=== PATIENT | female | born 1980 | race Caucasian/White ===

== ENCOUNTER 2020-06-09 15:08 | Emergency (ER) | payer OTHER, SELFPAY ==
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
--- NOTE | ~2020-06-09 | XR_ITS ---
EXAMINATION: XR chest 2V DATE: 06/09/2020 16:19 INDICATION: Right shoulder pain TECHNIQUE: PA and lateral views of the chest are obtained. COMPARISON: 08/08/2019 FINDINGS: The lungs are free of acute opacities. There is no pleural effusion or pneumothorax. The ca rdiomediastinal silhouette is normal. There is mild thoracic spondylosis. IMPRESSION: 1. No acute cardiopulmonary abnormality. Reviewed, dictated and finalized at location A.
[2020-06-09 15:12] VITALS: BP 124/94; PULSE 121; RESP 18; TEMP 36.7; O2SAT 100
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
--- NOTE | 2020-06-09 16:10 | PC.NURSE ---
Pt to CT scan and Xray via stretcher.
[2020-06-09 17:08] VITALS: BP 141/93; PULSE 89; RESP 17; O2SAT 100
== END 2020-06-09 17:09 | disposition home or self-care (01) ==
PROVIDERS: Emergency Provider Emergency Medicine; PCP Family Medicine
DX: S16.1XXA Strain of muscle, fascia and tendon at neck level, initial encounter (principal); V59.50XA Passenger in pick-up truck or van injured in collision with unspecified motor vehicles in traffic accident, initial encounter; S20.219A Contusion of unspecified front wall of thorax, initial encounter; S40.011A Contusion of right shoulder, initial encounter; F17.200 Nicotine dependence, unspecified, uncomplicated
CPT/HCPCS: 71046; 72125; 73030; 99284

== ENCOUNTER → 2020-12-25 01:51 | Outpatient (CLI) | payer OTHER, SELFPAY ==
[2020-12-26 08:28] LABS: SARS-CoV-2 RNA PCR Negative
== END ==
PROVIDERS: PCP Family Medicine; Visit Provider Internal Medicine Gastroenterology
DX: Z01.812 Encounter for preprocedural laboratory examination (principal); Z20.822 Contact with and (suspected) exposure to COVID-19
CPT/HCPCS: C9803; U0003; U0005

== ENCOUNTER 2020-12-28 00:51 | Day surgery (SDC) | payer OTHER, SELFPAY ==
[2020-12-11 12:40] VITALS: BMI 24.6
[2020-12-28 07:47] VITALS: BP 128/94; PULSE 100; RESP 16; TEMP 36.7; O2SAT 99
[2020-12-28] MEDS: LACTATED RINGERS 1,000 ML 150 ML IV CONT (07:55)
--- NOTE | 2020-12-28 08:53 | WPDANESEPPF ---
Anes - Initial Pre Proc Eval Procedure: Operation Date: 12/28/20 09:00 Proposed Procedures p Screening Colonoscopy - Juni Mccain MD Date/Time: 12/28/20 08:53 Surgeon: Juni Mccain MD Pre Op Diagnosis: Neoplasm Screening, Family Hx Of Colon CA Patient Data Age: 40 Gender: F Height: 5 ft 8 in Weight: 76.6 kg Last Vital Signs Temp 98.1 F 12/28/20 07:47 Pulse 100 12/28/20 07:47 Resp 16 12/28/20 07:47 BP 128/94 H 12/28/20 07:47 Pulse Ox 99 12/28/20 07:47 Allergies Allergy/AdvReac Type Severity Reaction Status Date / Time oxycodone Allergy Intermediate Hives Verified 12/11/20 12:41 Home Medications Medication Instructions Recorded Confirmed Type cetirizine 10 mg tablet 10 mg PO DAILY 09/29/20 12/11/20 History cholecalciferol (vitamin D3) 125 125 mcg PO DAILY 09/29/20 12/11/20 History mcg (5,000 unit) capsule fluticasone propionate 50 1 spray INTRANASAL DAILY 09/29/20 12/11/20 History mcg/actuation nasal spray,suspension zsopmvhzuaxa-Gj-newo-minerals 1 tablet PO DAILY 09/29/20 12/11/20 History medroxyprogesterone See Rx Instructions .ROUTE .COMPLEX 12/11/20 12/11/20 History sodium oxybate [Xyrem] 4 g PO HS 12/11/20 12/11/20 History solriamfetol [Sunosi] 150 mg PO DAILY 12/11/20 12/11/20 History Patient hx anesthesia problems: none Family hx anesthesia problems: none PMFSH Past Medical History Medical History (Updated 09/29/20 @ 11:53 by Jamila Ritchie NP) Allergic rhinitis (~1983) Family history of colon cancer Fibrocystic breast (~2007) Idiopathic hypersomnia with long sleep time (~1992) [facility]: Dr. Schwartz: sleep study AMARIS (obstructive sleep apnea) (~2011) CPAP Surgical History Surgical History H/O lumpectomy left breast 2008 Hx of tonsillectomy 2000 Family History Family History (Updated 09/29/20 @ 10:22 by Rodo Trujillo [facility]) Mother Family history of malignant neoplasm of breast in first degree relative Breast cancer DCIS Obesity (BMI 35.0-39.9 without comorbidity) Heart disease History of bilateral knee replacement Pulmonary embolism Father Carcinoma of colon, Onset Age: 70 Cerebrovascular accident 2011, 2012 Heart disease Grandparent , in her 80's Colon polyp Alzheimer's dementia Cerebrovascular accident COPD (chronic obstructive pulmonary disease) with emphysema Unknown Colon polyp, Onset Age: 30 Other Family history of arthritis Social History Social History Smoking packs per day: 1 Smoking cigarettes per day: 20.0 Years smoked: 25 Smoking pack-years: 25.00 Smoking status: Current every day smoker Tobacco type: cigarettes Alcohol intake: current Substance use: never Substance use type: does not use Additional living arrangements comments: son Additional occupation/education comments: nurse practitioner Gender identity (if verbalized by the patient): Female Spiritual care concerns: No Anes - Eval Final PreProcedure Day of Procedure 12/28/20 08:53 Patient weight: normal Heart: regular rate and rhythm Lungs: clear to auscultation Airway: Mallampati scale class II Neurological: alert and oriented Last oral intake: >/= 8 hours ASA classification: II Emergent: no Anesthetic plan: proceed Anesthesia type and monitoring: general GIVS and standard monitoring Informed Consent: The patient's anesthetic plan and its attendant risks and benefits were discussed with the patient/family/POA. Questions were solicited and answers provided to the satisfaction of the patient/family/POA.
--- NOTE | 2020-12-28 08:58 | PM.HPGS ---
History of Present Illness History of Present Illness Consent: Risks, benefits, and alternatives have been discussed and questions answered. Patient agrees to proceed with procedure. Chief complaint: Neoplasm Screening, Family Hx Of Colon CA Narrative: Veronika Diamond is a 40 year old female here for first colonoscopy, father had colon cancer Review of Systems Constitutional: Constitutional: Denies headache(s) and Denies weakness Eyes: Eyes: Denies blurry vision ENT: Reports Normal hearing present, Denies headache(s) and Denies neck pain Cardiovascular: Cardiovascular: Denies chest pain and Denies dyspnea Respiratory: Respiratory: Denies dyspnea Gastrointestinal: Gastrointestinal: Reports no additional gastrointestinal complaints Genitourinary: Genitourinary: Denies dysuria Musculoskeletal: Musculoskeletal: Denies neck pain Integumentary/Breasts: Skin/Breast: Denies dry skin Neurologic: Reports Normal hearing present, Denies headache(s) and Denies weakness Psychiatric: Psychiatric: Denies anxiety Endocrine: Endocrine: Denies change in body appearance Hematologic/Lymphatic: Hematologic/Lymphatic: Denies easy bleeding Allergic/Immunologic: Allergic/Immunologic: Denies urticaria PMFSH Past Medical History Medical History (Updated 09/29/20 @ 11:53 by Jamila Ritchie NP) Allergic rhinitis (~1983) Family history of colon cancer Fibrocystic breast (~2007) Idiopathic hypersomnia with long sleep time (~1992) [facility]: Dr. Schwartz: sleep study AMARIS (obstructive sleep apnea) (~2011) CPAP Surgical History Surgical History H/O lumpectomy left breast 2008 Hx of tonsillectomy 2000 Family History Family History (Updated 09/29/20 @ 10:22 by Rodo Trujillo [facility]) Mother Family history of malignant neoplasm of breast in first degree relative Breast cancer DCIS Obesity (BMI 35.0-39.9 without comorbidity) Heart disease History of bilateral knee replacement Pulmonary embolism Father Carcinoma of colon, Onset Age: 70 Cerebrovascular accident 2011, 2012 Heart disease Grandparent , in her 80's Colon polyp Alzheimer's dementia Cerebrovascular accident COPD (chronic obstructive pulmonary disease) with emphysema Unknown Colon polyp, Onset Age: 30 Other Family history of arthritis Social History Social History Smoking packs per day: 1 Smoking cigarettes per day: 20.0 Years smoked: 25 Smoking pack-years: 25.00 Smoking status: Current every day smoker Tobacco type: cigarettes Alcohol intake: current Substance use: never Substance use type: does not use Additional living arrangements comments: son Additional occupation/education comments: nurse practitioner Gender identity (if verbalized by the patient): Female Spiritual care concerns: No Meds Home Medications and Allergies Home Medications Medication Instructions Recorded Confirmed Type cetirizine 10 mg tablet 10 mg PO DAILY 09/29/20 12/11/20 History cholecalciferol (vitamin D3) 125 125 mcg PO DAILY 09/29/20 12/11/20 History mcg (5,000 unit) capsule fluticasone propionate 50 1 spray INTRANASAL DAILY 09/29/20 12/11/20 History mcg/actuation nasal spray,suspension qjygykonshin-Rq-lylx-minerals 1 tablet PO DAILY 09/29/20 12/11/20 History medroxyprogesterone See Rx Instructions .ROUTE .COMPLEX 12/11/20 12/11/20 History sodium oxybate [Xyrem] 4 g PO HS 12/11/20 12/11/20 History solriamfetol [Sunosi] 150 mg PO DAILY 12/11/20 12/11/20 History Allergies Allergy/AdvReac Type Severity Reaction Status Date / Time oxycodone Allergy Intermediate Hives Verified 12/11/20 12:41 Vital Signs Vital Signs - 24 hr 12/28/20 07:47 Temperature 98.1 F Pulse Rate 100 Respiratory Rate 16 Blood Pressure 128/94 H Pulse Oximetry 99 Exam Const:
[2020-12-28 09:17] VITALS: BP 121/92; PULSE 100; RESP 19; O2SAT 100
[2020-12-28 09:27] VITALS: BP 129/97; PULSE 99; RESP 21; O2SAT 99
[2020-12-28 09:37] VITALS: BP 128/84; PULSE 82; RESP 21; O2SAT 100
== END 2020-12-28 09:50 | disposition home or self-care (01) ==
PROVIDERS: PCP Family Medicine; Visit Provider Internal Medicine Gastroenterology
PROC: 0DJD8ZZ Inspection of Lower Intestinal Tract, Via Natural or Artificial Opening Endoscopic (ICD-10-PCS; CPT 45378; principal; 2020-12-28 09:00)
DX: Z12.11 Encounter for screening for malignant neoplasm of colon (principal); K63.5 Polyp of colon; K64.8 Other hemorrhoids; Z80.0 Family history of malignant neoplasm of digestive organs; G47.33 Obstructive sleep apnea (adult) (pediatric); F17.210 Nicotine dependence, cigarettes, uncomplicated
CPT/HCPCS: 45385; 88305; C9803; J2704; J7120; U0003; U0005

== ENCOUNTER 2023-10-05 13:53 | Emergency (ER) | payer OTHER, SELFPAY ==
--- NOTE | 2023-10-05 14:08 | ED.URI ---
HPI - URI/Sore Throat General Chief Complaint: Upper Respiratory Infection Stated Complaint: Strep symptoms History of Present Illness HPI Narrative: 43 y/o female presented for c/o sore throat x3 days. Reports chronic post nasal drip and has been taking nasal spray and antihistamine. Denies increase in cough from baseline, sob, wheezing, n/v/d/f/c. Denies sick contacts. Smokes 1ppd. Related Data Home Medications Medication Instructions Recorded Confirmed cetirizine 10 mg tablet (Zyrtec) 10 mg PO DAILY 09/29/20 10/05/23 cholecalciferol (vitamin D3) 125 125 mcg PO DAILY 09/29/20 05/10/22 mcg (5,000 unit) capsule fluticasone propionate 50 1 spray intranasal DAILY 09/29/20 10/05/23 mcg/actuation nasal spray,suspension uxczsdmzaevz-Ka-qqjc-minerals 1 tablet PO DAILY 09/29/20 05/10/22 (Multiple Vitamin, Womens tablet) sodium, calcium, magnesium, 3.75 g PO QHS 11/04/21 10/05/23 potassium oxybates 0.5 gram/mL oral soln (Xywav) solriamfetol 150 mg tablet (Sunosi) 150 mg PO DAILY 11/04/21 10/05/23 Allergies Allergy/AdvReac Type Severity Reaction Status Date / Time oxycodone Allergy Intermediate Hives Verified 05/10/22 13:34 Review of Systems Review of Systems: CONSTITUTIONAL: Denies body aches, fever, chills, or sweats. EYES: Denies visual changes, redness, or discharge. ENT: reports sore throat, rhinorrhea CARDIOVASCULAR: Denies chest pain, palpitations, or edema. RESPIRATORY: Denies dyspnea. GASTROINTESTINAL: Denies abdominal pain, nausea, vomiting, or diarrhea. SKIN: Denies rash, itching, or wounds. MUSCULOSKELETAL: Denies back pain, joint pain, or myalgia. NEUROLOGIC: reports headache PMFSH Past Medical History Medical History Allergic rhinitis (~1983) Family history of colon cancer Fibrocystic breast (~2007) Idiopathic hypersomnia with long sleep time (~1992) [facility]: Dr. Schwartz: sleep study AMARIS (obstructive sleep apnea) (~2012) CPAP Sleep apnea Surgical History Surgical History H/O lumpectomy left breast 2008 Hx of tonsillectomy 2000 Family History Family History Mother Family history of malignant neoplasm of breast in first degree relative Breast cancer DCIS Obesity (BMI 35.0-39.9 without comorbidity) Heart disease History of bilateral knee replacement Pulmonary embolism Father Carcinoma of colon, Onset Age: 70 Cerebrovascular accident 2011, 2012 Heart disease Grandparent , in her 80's Colon polyp Alzheimer's dementia Cerebrovascular accident COPD (chronic obstructive pulmonary disease) with emphysema Unknown Colon polyp, Onset Age: 30 Other Family history of arthritis Social History Social History Smoking packs per day: 1 Smoking cigarettes per day: 20.0 Years smoked: 25 Smoking pack-years: 25.00 Smoking status: Current every day smoker Tobacco type: cigarettes Alcohol intake: current Alcohol use details: occasional Substance use: never Substance use type: does not use Living arrangements: alone Additional living arrangements comments: son Occupation/Education: occupation Additional occupation/education comments: nurse practitioner Gender identity (if verbalized by the patient): Female Spiritual care concerns: No Exam Narrative: GENERAL: mildly Ill-appearing, no acute distress. EYES: conjunctivae clear ENT: Mucous membranes moist. TMs pearly hankins with normal light reflex bilaterally; no tragal tenderness. Oropharynx erythematous without lesions. Tonsils absent. Slightly hoarse voice. No drooling, no trismus, uvula midline. No tripod positioning, hot potato voice, or soft palate swelling. NECK: Supple. No lymphadenopathy CHEST: Clear to ausculta
[2023-10-05 14:10] VITALS: BP 142/103; PULSE 117; RESP 16; TEMP 36.3; O2SAT 99
== END 2023-10-05 14:25 | disposition home or self-care (01) ==
PROVIDERS: Emergency Provider Nurse Practitioner Family
DX: J06.9 Acute upper respiratory infection, unspecified (principal); F17.210 Nicotine dependence, cigarettes, uncomplicated; Z79.899 Other long term (current) drug therapy
CPT/HCPCS: 87081; 87880; 99213; G0463

== ENCOUNTER 2024-03-02 09:27 | Outpatient (CLI) | payer OTHER, SELFPAY ==
--- NOTE | ~2024-03-02 | MM_ITS ---
EXAMINATION: MM screening [facility] HISTORY: Screening mammogram TECHNIQUE: Craniocaudal and mediolateral oblique 3-D tomosynthesis images were obtained and synthetic 2-D images were generated. CAD analysis was submitted and interpreted. COMPARISON: 05/31/2007 left breast ultrasound, reported negative BREAST PARENCHYMAL COMPOSITION: The breasts are heterogeneously dense, which may obscure small masses . FINDINGS: There is no evidence of suspicious mass, calcification, or architectural distortion to sugg est malignancy in either breast. IMPRESSION: 1. No mammographic evidence of malignancy. 2. Recommend routine screening mammography in one year. BI-RADS Category 1: Negative Reviewed, dictated and finalized at location A.
== END 2024-03-02 09:28 ==
PROVIDERS: PCP Family Medicine Sports Medicine; Visit Provider Family Medicine Sports Medicine
DX: Z12.31 Encounter for screening mammogram for malignant neoplasm of breast (principal)
CPT/HCPCS: 77063; 77067

== ENCOUNTER 2024-09-16 16:51 | Emergency (ER) | payer OTHER, SELFPAY ==
--- NOTE | ~2024-09-16 | XR_ITS ---
EXAMINATION: XR chest 2V Exam Date/Time: 09/16/2024 17:50 [facility]PERINTENDENT HISTORY: cough for 3 wk Comparison: 06/09/2020. RESULT: Lines, tubes, and devices: None. Lungs and pleura: Clear. Cardiomediastinal silhouette: Stable. Other: No acute osseous or upper abdominal finding. IMPRESSION: No acute cardiopulmonary process. Reviewed, dictated and finalized at location K. ITAL SUPERINTENDENT
[2024-09-16 17:41] VITALS: BP 157/107; PULSE 97; RESP 15; TEMP 36.2; O2SAT 100
--- NOTE | 2024-09-16 18:23 | ED.URI ---
HPI - URI/Sore Throat General Chief Complaint: Upper Respiratory Infection Stated Complaint: COUGH/CHEST PAIN Time Seen by Provider: 09/16/24 17:55 Source: patient Mode of arrival: ambulatory Limitations: no limitations History of Present Illness HPI Narrative: 44-year-old female presents with history of 3 weeks of coughing, sinus congestion, sinus pressure. Is taking daily antihistamine, nasal spray and has done Neti pot. No recent fevers. Worsening of cough with chest pain to left side when coughing. Feels congested in lungs. Patient reports she is wearing depends due to incontinence from coughing. Current every day smoker. All systems reviewed and negative except as noted above. Related Data Home Medications Medication Instructions Recorded Confirmed cetirizine 10 mg tablet (Zyrtec) 10 mg PO DAILY 09/29/20 10/05/23 cholecalciferol (vitamin D3) 125 125 mcg PO DAILY 09/29/20 10/05/23 mcg (5,000 unit) capsule fluticasone propionate 50 1 spray intranasal DAILY 09/29/20 10/05/23 mcg/actuation nasal spray,suspension xtcfvpcdzslh-Go-tdgt-minerals 1 tablet PO DAILY 09/29/20 10/05/23 (Multiple Vitamin, Womens tablet) sodium, calcium, magnesium, 3.75 g PO QHS 11/04/21 10/05/23 potassium oxybates 0.5 gram/mL oral soln (Xywav) solriamfetol 150 mg tablet (Sunosi) 150 mg PO DAILY 11/04/21 10/05/23 Allergies Allergy/AdvReac Type Severity Reaction Status Date / Time oxycodone Allergy Intermediate Hives Verified 05/10/22 13:34 Review of Systems Review of Systems: CONSTITUTIONAL: Denies fever, chills, or sweats. Reports fatigue. EYES: Denies visual changes, redness, or discharge. ENT: Reports rhinorrhea, congestion, sinus pressure, postnasal drainage. Denies sore throat, or otalgia. CARDIOVASCULAR: Denies chest pain, palpitations, or edema. RESPIRATORY: Reports cough. Denies dyspnea. GASTROINTESTINAL: Denies abdominal pain, nausea, vomiting, or diarrhea. GENITOURINARY: Denies dysuria or hematuria. SKIN: Denies rash or itching. MUSCULOSKELETAL: Denies back pain, joint pain, or myalgia. NEUROLOGIC: Denies headache, numbness, or weakness. PSYCHIATRIC: Denies anxiety or depression. All other systems reviewed are negative, except as documented in HPI. [facility], LAT[facility] Past Medical History Medical History Allergic rhinitis (~1983) Family history of colon cancer Fibrocystic breast (~2007) Idiopathic hypersomnia with long sleep time (~1992) [facility], [place]: Dr. Schwartz: sleep study AMARIS (obstructive sleep apnea) (~2011) CPAP Sleep apnea Surgical History Surgical History H/O lumpectomy left breast 2008 Hx of tonsillectomy 2000 Family History Family History Mother Family history of malignant neoplasm of breast in first degree relative Breast cancer DCIS Obesity (BMI 35.0-39.9 without comorbidity) Heart disease History of bilateral knee replacement Pulmonary embolism Father Carcinoma of colon, Onset Age: 70 Cerebrovascular accident 2011, 2012 Heart disease Grandparent , in her 80's Colon polyp Alzheimer's dementia Cerebrovascular accident COPD (chronic obstructive pulmonary disease) with emphysema Unknown Colon polyp, Onset Age: 30 Other Family history of arthritis Social History Social History Smoking packs per day: 1 Smoking cigarettes per day: 20.0 Years smoked: 25 Smoking pack-years: 25.00 Smoking status: Current every day smoker Tobacco type: cigarettes Alcohol intake: current Alcohol use details: occasional Substance use: never Substance use type: does not use Living arrangements: alone Additional living arrangements comments: son Occupation/Education: occupation Additional occupation/education comments: nurse practitioner Gender identity (if verbalized by the patient): Female Spiritual care concerns: No Comments At time of signature, agree with nursing past medical, surgical, social and family history. There is no relevant family history pertinent to the presenting complaint. Exam Narrative: GENERAL: This is a well-nourished, well-developed patient, in no apparent distress. HEAD: normocephalic, atraumatic. EYES: PERRL. Sclera clear/white. Vision is grossly intact. EARS: External ears normal, auditory canals clear and without drainage, TMs normal without perforation. Hearing grossly intact. NOSE: External nose normal with moderate congestion, purulent nasal drainage, erythema and swelling to bilateral nares THROAT: Mucous membranes moist, erythema postnasal drainage NECK: Neck supple, non-tender without lymphadenopathy, masses or thyromegaly. CARDIOVASCULAR: Regular rate and rhythm without murmurs, gallops, or rubs. RESPIRATORY: Decreased throughout all lung russ otherwise clear. Breath sounds equal bilaterally. No wheezes, rales, or rhonchi. SKIN: warm, Dry, intact with no suspicious lesions or rash, good texture and turgor. NEURO: awake, alert, and oriented to person, place and time. There were no obvious focal neurologic abnormalities. EXTREMITIES: No joint tenderness, effusion, or edema noted. Course Course Level of Care: Express Care Visit Vital Signs Vital signs: Vital Signs Temperature 36.2 C L 09/16/24 17:41 Pulse Rate 97 09/16/24 17:41 Respiratory Rate 15 09/16/24 17:41 Blood Pressure 157/107 H 09/16/24 17:41 Pulse Oximetry 100 09/16/24 17:41 Oxygen Delivery Room Air 09/16/24 17:41 Temperature 36.2 C L 09/16/24 17:41 Pulse Rate 97 09/16/24 17:41 Respiratory Rate 15 09/16/24 17:41 Blood Pressure 157/107 H 09/16/24 17:41 Pulse Oximetry 100 09/16/24 17:41 Oxygen Delivery Room Air 09/16/24 17:41 Reviewed MDM - URI/Sore Throat MDM Narrative Medical decision making narrative: Patient is aware of diagnosis, understands and agrees to treatment plan. Anticipatory guidance given. Patient agrees to follow-up as directed and is aware of reasons to seek care at the emergency department. Portions of this record may have been created with voice recognition software Chest x-ray normal, negative for pneumonia. Will put patient on antibiotic for bacterial sinusitis. Will treat cough with mycin with codeine. Allergy to oxycodone. Patient reports she has taken codeine in the past and has had no issues. Patient nontoxic at time of discharge. Differential Diagnosis Differential diagnosis: Likely upper respiratory infection, sinusitis, viral infection, bronchitis, influenza and pharyngitis Discharge Plan Discharge Clinical Impression: Acute bacterial sinusitis, Acute bronchitis Patient Disposition: Home, Self-Care Condition: Stable Instructions: Antibiotic Form, Sinusitis (ED) Additional Instructions: Your chest x-ray was normal today. Take medications as prescribed. Do not drive while taking prescription cough medication. This medication may make you drowsy. Follow-up with your primary care physician if symptoms are not improving. Prescriptions: New prednisone 20 mg tablet 40 mg PO DAILY 5 Days Qty: 10 0RF codeine-guaifenesin [Virtussin AC] 10-100 mg/5 mL liquid 5 ml PO Q6H PRN (Reason: cough) Qty: 120 0RF amoxicillin-pot clavulanate 875-125 mg tablet 1 tablet PO Q12H 10 Days Qty: 20 0RF No Action cetirizine [Zyrtec] 10 mg tablet 10 mg PO DAILY fluticasone propionate 50 mcg/actuation spray,suspension 1 spray intranasal DAILY Rx Instructions: administer into each nostril cholecalciferol (vitamin D3) 125 mcg (5,000 unit) capsule 125 mcg PO DAILY Multiple Vitamin, Womens Tablet 1 tablet PO DAILY Xywav 0.5 gram/mL solution 3.75 g PO QHS Rx Instructions: administer the first dose at bedtime and the second dose 2.5-4 hours later Sunosi 150 mg tablet 150 mg PO DAILY Follow-up/Referrals: Heaven,Hope Brito MD [Primary Care Provider] - Stand Alone Forms: Work/School Release IP Time of Disposition: 18:15
== END 2024-09-16 18:18 | disposition home or self-care (01) ==
PROVIDERS: Emergency Provider Nurse Practitioner Family; PCP Family Medicine Sports Medicine
DX: J01.90 Acute sinusitis, unspecified (principal); J20.9 Acute bronchitis, unspecified; F17.210 Nicotine dependence, cigarettes, uncomplicated; G47.33 Obstructive sleep apnea (adult) (pediatric)
CPT/HCPCS: 71046; 99213; G0463